=== PATIENT | male | born 1970 | race Caucasian/White ===

== ENCOUNTER 2020-09-13 14:02 | Emergency (ER) | payer OTHER ==
[2020-09-13] MEDS ORDERED: NAPROXEN500 MG PO (15:58)
[2020-09-13] MEDS ORDERED: NORCO 5-325 TA1 EACH PO (15:58)
== END 2020-09-13 16:25 | disposition home or self-care (01) ==
LOC: FER 14:02
DX: S22.41XA Multiple fractures of ribs, right side, initial encounter for closed fracture (principal); W16.112A Fall into natural body of water striking water surface causing other injury, initial encounter; Y92.830 Public park as the place of occurrence of the external cause; Z88.1 Allergy status to other antibiotic agents
CPT/HCPCS: 71101; J1885